=== PATIENT | female | born 1970 | race Caucasian/White ===

== ENCOUNTER 2023-08-09 13:32 | Outpatient (CLI) | payer OTHER, SELFPAY ==
[2023-08-09 13:48] VITALS: PULSE 93; RESP 18; O2SAT 98
[2023-08-09 13:52] VITALS: PULSE 98
[2023-08-09] MEDS: albuterol 2.5 mg/3 mL Neb INHALATION (13:57)
--- NOTE | 2023-08-09 14:16 | XRR_ITS ---
PROCEDURE INFORMATION: Exam: XR Chest Exam date and time: 08/09/2023 2:31 PM Age: 53 years old Clinical indication: Condition or disease; Lung condition and disease; Copd; Complications not specified; Prior surgery; Surgery date: 6+ months; Surgery type: Breast augmentation TECHNIQUE: Imaging protocol: Radiologic exam of the chest. Views: 2 views. COMPARISON: No relevant prior studies available. FINDINGS: Lungs: Minimal strand like density in the right apex is either fibrosis or a minimal infiltrate. Pleural spaces: Unremarkable. No pleural effusion. No pneumothorax. Heart/Mediastinum: Unremarkable. No cardiomegaly. Bones/joints: Unremarkable. XR/XR chest 2V* [id number] IMPRESSION: Minimal infiltrate or scarring in the right upper lobe.
== END 2023-08-09 13:33 | disposition home or self-care (01) ==
LOC: RT 13:32
PROVIDERS: Visit Provider Chiropractor
DX: J44.9 Chronic obstructive pulmonary disease, unspecified (principal)
CPT/HCPCS: 71046; 94060; J7613